=== PATIENT | male | born 1960 | race Hispanic/Latino ===

== ENCOUNTER 2017-09-01 00:46 | Inpatient (IN) | payer OTHER ==
[2017-09-01] MEDS ORDERED: ASPIRIN PO ONE (01:19)
--- NOTE | 2017-09-01 01:26 | Emergency Department Report ---
ED Chest Pain HPI - General Chief Complaint: Chest Pain Stated Complaint: CHEST PAIN Time Seen by Provider: 09/01/17 01:17 Source: patient, EMS Mode of arrival: Ambulatory Limitations: No Limitations - History of Present Illness Initial Comments: Patient is a 56-year-old male who is presenting with chest pain. Patient has a history of coronary disease. Patient has a history of 2 MIs with 2 stents placed in the past. Last night was placed approximately one year ago. Patient states he was at home. He walked outside to have a cigarette butt time he walked back in he was having chest discomfort. Patient describes the pain is uncomfortable heaviness with radiation to the arms. There is associated shortness of breath and clamminess. Patient denies any nausea vomiting. Patient also denies any pleuritic chest pain at this time. Patient states he has not had a cough cold congestion sinus issues in the past several days to weeks. Currently patient states that he is chest pain as a 3 out of 10 in severity. Treatments Prior to Arrival: none, aspirin Aspirin use within the Past 7 Days: (1) Yes - Related Data Allergies Allergy/AdvReac Type Severity Reaction Status Date / Time No Known Allergies Allergy Unverified 09/01/17 01:13 Heart Score - HEART Score History: Highly suspicious EKG: Normal Age: 45-65 Risk factors: > 3 risk factors or hx of atherosclerotic disease Troponin: < normal limit HEART Score: 5 - Critical Actions Critical Actions: 4-6 pts:12-16.6% risk of adverse cardiac event. Should be admitted ED Review of Systems ROS: Stated complaint: CHEST PAIN Other details as noted in HPI Comment: All other systems reviewed and negative ED Past Medical Hx - Past Medical History Previous Medical History?: Yes Hx Hypertension: Yes Hx Heart Attack/AMI: Yes Additional medical history: ANXIETY - Surgical History Past Surgical History?: No - Social History Smoking Status: Unknown if ever smoked Substance Use Type: None ED Physical Exam - General Limitations: No Limitations General appearance: alert, in no apparent distress - Head Head exam: Present: atraumatic, normocephalic - Eye Eye exam: Present: normal appearance - ENT ENT exam: Present: mucous membranes moist - Neck Neck exam: Present: normal inspection - Respiratory Respiratory exam: Present: normal lung sounds bilaterally. Absent: respiratory distress - Cardiovascular Cardiovascular Exam: Present: regular rate, normal rhythm. Absent: systolic murmur, diastolic murmur, rubs, gallop - GI/Abdominal GI/Abdominal exam: Present: soft, normal bowel sounds - Rectal Rectal exam: Present: deferred - Extremities Exam Extremities exam: Present: normal inspection - Back Exam Back exam: Present: normal inspection - Neurological Exam Neurological exam: Present: alert, oriented X3 - Psychiatric Psychiatric exam: Present: normal affect, normal mood - Skin Skin exam: Present: warm, dry, intact, normal color. Absent: rash ED Course Vital Signs 09/01/17 09/01/17 09/01/17 03:08 04:33 04:40 Pulse Rate 67 74 Respiratory 18 18 18 Rate Blood Pressure 121/80 150/101 [Left] O2 Sat by Pulse 96 96 Oximetry LEXY score - Lexy Score Age > 65: (0) No Aspirin use within the Past 7 Days: (1) Yes 3 or more CAD Risk Factors: (1) Yes 2 or more Angina events in past 24 hrs: (0) No Known CAD with more than 50% Stenosis: (1) Yes Elevated Cardiac Markers: (0) No ST Deviation Greater than 0.5mm: (0) No LEXY Score: 3 ED Medical Decision Making - Lab Data Result diagrams: 09/01/17 01:59 09/01/17 01:59 - EKG Data Interpretation: no acute changes, other (EKGs shows sinus rhythm rate of 74 axis is leftward intervals there's a prolonged ND interval LVH is present. Inferior Q waves as well as anterior septal Q waves there are no ST segment elevations or depressions time of interpretation is 0104) - Radiology Data Radiology results: image reviewed interpreted by me: No acute process - Medical Decision Making is a 56-year-old male with past medical history of coronary disease was presenting with chest pain. Patient's pain is controlled at this time after receiving aspirin. Patient will be admitted to Dr. Hayes for cardiac rule out because of his high risk. Patient be admitted to the hospital. Critical care time in (mins) excluding proc time.: 30 Critical care attestation.: If time is entered above; I have spent that time in minutes in the direct care of this critically ill patient, excluding procedure time. ED Disposition Clinical Impression: Unstable angina Disposition: OP ADMIT IP TO THIS HOSP Is pt being admited?: Yes Does the pt Need Aspirin: No Condition: Stable Instructions: Angina (ED) Referrals: MOOKIE PICHARDO MD [Primary Care Provider] - 3-5 Days
[2017-09-01 02:11] LABS: Basophils # (Auto) 0.1 K/mm3 (0.0-0.1); Basophils % (Auto) 0.6 % (0.0-1.8); Eosinophils # (Auto) 0.2 K/mm3 (0.0-0.4); Eosinophils % (Auto) 2.1 % (0.0-4.3); Hematocrit 43.6 % (35.5-45.6); Hemoglobin 14.8 gm/dl (11.8-15.2); Lymphocytes # (Auto) 1.8 K/mm3 (1.2-5.4); Lymphocytes % (Auto) 16.9 % (13.4-35.0); Mean Corpuscular HGB Conc 34 % (32-34); Mean Corpuscular Hemoglobin 32 pg (28-32); Mean Corpuscular Volume 94 fl (84-94); Monocytes # (Auto) 0.6 K/mm3 (0.0-0.8); Monocytes % (Auto) 5.4 % (0.0-7.3); Platelet Count 217 K/mm3 (140-440); Red Blood Count 4.62 M/mm3 (3.65-5.03); Red Cell Distribution Width 14.2 % (13.2-15.2)
[2017-09-01 02:27] LABS: BUN/Creatinine Ratio 14; Blood Urea Nitrogen 14 mg/dL (9-20); Calcium 9.2 mg/dL (8.4-10.2); Hemolysis Index 21
--- NOTE | 2017-09-01 04:35 | XRay Report ---
FINAL REPORT PROCEDURE: XR CHEST ROUTINE 2V TECHNIQUE: PA and lateral chest radiographs were obtained. CPT 20775 HISTORY: cough COMPARISON: No prior studies are available for comparison. FINDINGS: Heart: Normal. Mediastinum/Vessels: Normal. Lungs/Pleural space: Normal. Bony thorax: No acute osseous abnormality. Other: IMPRESSION: There is no evidence of an acute cardiopulmonary process.
[2017-09-01] MEDS ORDERED: MILK OF MAGNESIA PO PRN (06:28)
[2017-09-01] MEDS ORDERED: MORPHINE IV PRN (06:28)
[2017-09-01] MEDS ORDERED: DULCOLAX PR PRN (06:28)
[2017-09-01] MEDS ORDERED: TYLENOL PO PRN (06:28)
[2017-09-01] MEDS ORDERED: ZOFRAN IV PRN (06:28)
--- NOTE | 2017-09-01 06:35 | History and Physical Report ---
History of Present Illness Date of examination: 09/01/17 History of present illness: 56-year-old man with a history of coronary artery disease, hypertension, anxiety comes emergency room with complaints of chest pain. Pain is in the left substernal area which she described as crushing pain, intensity 7/10, constant, radiating to the right arm. States that the right arm is numb, cannot identify exacerbating or relieving factors. Last stent was placed in May of last year, he did a stress test a week ago as a routine physical, state that his EF is 31%, Cymbalta, shortness of breath, no diaphoresis, palpitation. Patient has been stretching out his medication, he was not taking it for one week Review Of Systems: Constitutional: no weight loss Ears, eyes, nose, mouth and throat: no nasal congestion, no nasal discharge, no sinus pressure, blurry vision, diplopia Neck: No neck pain or rigidity. Cardiovascular: No palpitations Respiratory: No cough Gastrointestinal: No abdominal pain, hematochezia Genitourinary : no dysuria, frequency , hematuria Musculoskeletal: no muscle ache Integumentary: no rash, no pruritis Neurological: no parathesias, focal weakness Endocrine: no cold or heat intolerance, no polyuria or polydipsia Hematologic/Lymphatic: no easy bruising, no easy bleeding, no gland swelling Allergic/Immunologic: no urticaria, no angioedema. PAST MEDICAL HISTORY:coronary artery disease, hypertension, anxiety PAST SURGICAL HISTORY: None FAMILY HISTORY: Hypertension SOCIAL HISTORY: Smokes about a day, no alcohol and drugs Medications and Allergies Allergies Allergy/AdvReac Type Severity Reaction Status Date / Time No Known Allergies Allergy Verified 09/01/17 06:32 Home Medications Medication Instructions Recorded Confirmed Last Taken Type AtorvaSTATin [Lipitor] 40 PO DAILY 09/01/17 1 Day Ago History ~08/31/17 Carvedilol [Coreg] 6.25 mg PO BID 09/01/17 09/01/17 1 Day Ago History ~08/31/17 Citalopram [Celexa] 20 DAILY 09/01/17 Unknown History Lisinopril [Zestril] 10 mg PO DAILY 09/01/17 09/01/17 1 Day Ago History ~08/31/17 Ticagrelor [Brilinta] 90 mg PO BID 09/01/17 09/01/17 1 Day Ago History ~08/31/17 Exam - Physical Exam Narrative exam: Gen. appearance: Patient lying in bed in no acute distress HEENT: Normocephalic/atraumatic, pupils equal round reactive to light, extra occular movement intact, no scleral icterus, no JVD or thyromegaly or nodule, neck is supple, mucous membrane moist, no erythema or exudate Heart: S1-S2, regular rate and rhythm Lungs: Clear to auscultation bilateral breathing comfortable Abdomen: Positive bowel sounds, nontender, nondistended, no organomegaly Extremities: No edema, cyanosis, clubbing Neuro:: Oriented 3 , cranial nerves II-12 intact, speech, motor intact Skin: No rash, nodules, warm dry - Constitutional Vitals: Temp Pulse Resp BP Pulse Ox 98 F 69 18 147/73 99 09/01/17 05:54 09/01/17 05:54 09/01/17 05:54 09/01/17 05:54 09/01/17 05:54 Results - Labs CBC & Chem 7: 09/01/17 01:59 09/01/17 01:59 Labs: Abnormal lab results 09/01/17 09/01/17 Range/Units 01:59 01:59 Seg Neutrophils % 75.0 H (40.0-70.0) % Seg Neutrophils # 8.0 H (1.8-7.7) K/mm3 Glucose 134 H (75-100) mg/dL - Imaging and Cardiology EKG: image reviewed Chest x-ray: image reviewed Assessment and Plan Assessment Unstable angina Coronary artery disease Hypertension Anxiety Plan Admit to medicine Check cardiac enzymes, consult cardiology Restart home medications DVT prophylaxis
[2017-09-01] MEDS ORDERED: APRESOLINE IV PRN (08:51)
[2017-09-01 08:54] LABS: Creatine Kinase MB 144.4 ng/mL (0.0-4.0)
[2017-09-01] MEDS ORDERED: LOVENOX SUB-Q SCH ×2 (10:00)
[2017-09-01] MEDS ORDERED: HEPARIN/ 0.45% NACL-25,000 UNIT/500 ML 25,000 UNIT/500 ML BAG IV SCH (13:00)
--- NOTE | 2017-09-01 13:02 | Event Note ---
Date: 09/01/17 Patient seen and examined Patient had a full history and physical this morning Cardiology consult was placed It's still pending I will start the patient on intravenous heparin drip as the patient has NSTEMI He quit taking patient ticagrelor several weeks ago after having a PCI for [place]
[2017-09-01 13:48] LABS: Hematocrit 44.5 % (35.5-45.6); Hemoglobin 14.9 gm/dl (11.8-15.2)
[2017-09-01 14:05] LABS: INR 0.94 (0.87-1.13)
[2017-09-01 14:06] LABS: Partial Thromboplastin Time 34.2 Sec. (24.2-36.6)
[2017-09-01 14:09] LABS: Creatine Kinase MB 124.4 ng/mL (0.0-4.0)
[2017-09-01] MEDS ORDERED: NITRO-BID 2% TP PRN (15:44)
[2017-09-01] MEDS: COREG PO SCH (20:59)
[2017-09-01] MEDS: BRILINTA PO SCH (20:59)
[2017-09-02 06:13] LABS: Basophils # (Auto) 0.1 K/mm3 (0.0-0.1); Basophils % (Auto) 0.7 % (0.0-1.8); Eosinophils # (Auto) 0.3 K/mm3 (0.0-0.4); Eosinophils % (Auto) 3.5 % (0.0-4.3); Lymphocytes # (Auto) 3.2 K/mm3 (1.2-5.4); Lymphocytes % (Auto) 37.6 % (13.4-35.0); Mean Corpuscular HGB Conc 33 % (32-34); Mean Corpuscular Hemoglobin 31 pg (28-32); Mean Corpuscular Volume 94 fl (84-94); Monocytes # (Auto) 0.8 K/mm3 (0.0-0.8); Monocytes % (Auto) 9.1 % (0.0-7.3); Platelet Count 203 K/mm3 (140-440); Red Blood Count 4.47 M/mm3 (3.65-5.03); Red Cell Distribution Width 14.4 % (13.2-15.2)
[2017-09-02 06:29] LABS: BUN/Creatinine Ratio 16; Blood Urea Nitrogen 14 mg/dL (9-20); Calcium 9.1 mg/dL (8.4-10.2); Hemolysis Index 9
[2017-09-02] MEDS ORDERED: ASPIRIN PO SCH (10:00)
[2017-09-02] MEDS: COREG PO SCH ×2 (10:32→22:34)
[2017-09-02] MEDS: BRILINTA PO SCH (10:32)
[2017-09-02] MEDS: ZESTRIL PO SCH (10:33)
[2017-09-02] MEDS ORDERED: HEPARIN/NS 5000 UNIT/500ML(CATH LAB) 1,000 ML IR ONE (13:45)
[2017-09-02] MEDS ORDERED: XYLOCAINE 2% INFILTRATI ONE (13:51)
[2017-09-02] MEDS ORDERED: NACL 0.9% 1000 ML 1,000 ML ONE (14:04)
[2017-09-02] MEDS: VERSED ONE ×2 (14:10→14:23)
--- NOTE | 2017-09-02 14:45 | Progress Note ---
Assessment and Plan NSTEMI - Likely due to re-blocking of the recent stent - Immediate cardiac cath shows patent stents mid LAD and prox-mid RCA. - Findings suggest transient thrombotic occlusion with spontaneous resolution on anticoagulation therapy. - There is a severe cardiomyopathy-EF 15-20%. - He'll be continue on Plavix, heparin drip will be stopped per cardiology recommendation Coronary artery disease - Continue current management, no further intervention per cardiology Hypertension - Adjustment as needed Anxiety - No acute issues now - Continue home regimen of Cymbalta Brief history: 56-year-old man with a history of coronary artery disease, hypertension, anxiety comes emergency room with complaints of chest pain. Last stent was placed in May of last year, he did a stress test a week ago as a routine physical, state that his EF is 31%. He noted to have elevated troponin and placed on heparin drip. He was admitted for further evaluation and management. Radiological test: CXR - no acute cardiopulmonary event Hospitalist Physical exam: GENERAL: well-developed and well-nourished white male lying on bed appeared to be in no discomfort. HEENT: Normocephalic. Atraumatic. No conjunctival congestion or icterus. Patient has moist mucous membranes. NECK: Supple. Trachea midline. CHEST/LUNGS: Clear to auscultated bilaterally, breathing nonlabored. No wheezes crackles or rhonchi. HEART/CARDIOVASCULAR: Regular in rate and rhythm. S1 and S2 positive. ABDOMEN: Abdomen is soft, nontender. Patient has normal bowel sounds. SKIN: There is no rash. Warm and dry. NEURO: No focal motor deficit. Follows command. MUSCULOSKELETAL: No joint effusion or tenderness. EXTRIMITY: No edema, no cyanosis or clubbing. PSYCH: Cooperative. Subjective Date of service: 09/02/17 Interval history: Patient seen and examined. Medical records and medication list reviewed. No acute event overnight noted by the RN. Patient is getting out of the floor no for cardiac cath States that chest pain much better now He also couldn't afford this medication because his insurance didn't cover the jackson He wants medications to switch back that is marked affordable Discussed plan of care at bedside with patient. Objective - Constitutional Vitals: Vital Signs - 12hr 09/02/17 09/02/17 04:22 08:03 Temperature 98.6 F Pulse Rate 69 61 Respiratory 18 Rate Blood Pressure 125/76 123/81 O2 Sat by Pulse 94 98 Oximetry - Labs CBC & Chem 7: 09/03/17 Unknown 09/02/17 05:05 Labs: Abnormal lab results 09/01/17 09/01/17 09/02/17 Range/Units 13:10 21:34 05:05 Lymph % (Auto) 37.6 H (13.4-35.0) % [place] % (Auto) 9.1 H (0.0-7.3) % Heparin Anti-Xa Level 0.23 L (0.3-0.7) U.I./ml Troponin T 1.980 H* D (0.00-0.029) ng/mL 09/02/17 Range/Units 05:11 Lymph % (Auto) (13.4-35.0) % [place] % (Auto) (0.0-7.3) % Heparin Anti-Xa Level 0.10 L (0.3-0.7) U.I./ml Troponin T (0.00-0.029) ng/mL
--- NOTE | 2017-09-02 14:49 | Consultation ---
History of Present Illness Consult date: 09/02/17 Consult reason: abnormal cardiac enzymes, chest pain History of present illness: 56y M with history of CAD and cor stent in [place] 05/2017. Has been noncompliant with his Brilinta due to loss of his job. Presents with chest pain and elevated cardiac enzymes-high suspicion for subacute stent thrombosis. Immediate cardiac cath shows patent stents mid LAD and prox-mid RCA. Findings suggest transient thrombotic occlusion with spontaneous resolution on anticoagulation therapy. There is a severe cardiomyopathy-EF 15-20%. We will treat medically, and switch to more affordable antiplatelet with Plavix. Past History Past Medical History: CAD Past Surgical History: PTCA Medications and Allergies Allergies Allergy/AdvReac Type Severity Reaction Status Date / Time No Known Allergies Allergy Verified 09/01/17 06:32 Home Medications Medication Instructions Recorded Confirmed Last Taken Type AtorvaSTATin [Lipitor] 40 mg PO DAILY 09/01/17 09/01/17 1 Day Ago History ~08/31/17 Carvedilol [Coreg] 6.25 mg PO BID 09/01/17 09/01/17 1 Day Ago History ~08/31/17 Citalopram [Celexa] 20 mg DAILY 09/01/17 09/02/17 Unknown History Lisinopril [Zestril] 10 mg PO DAILY 09/01/17 09/01/17 1 Day Ago History ~08/31/17 Ticagrelor [Brilinta] 90 mg PO BID 09/01/17 09/01/17 1 Day Ago History ~08/31/17 Active Meds: Active Medications Acetaminophen (Tylenol) 650 mg PO Q4H PRN PRN Reason: Pain MILD(1-3)/Fever >100.5/[place] Aspirin (Halfprin Ec) 81 mg PO QDAY [facility] [place] Atorvastatin Calcium (Lipitor) 40 mg PO QHS [facility] Last Admin: 09/01/17 20:59 Dose: 40 mg Bisacodyl (Dulcolax) 10 mg [place] QDAY PRN PRN Reason: Constipation unrelieved by MOM Carvedilol (Coreg) 6.25 mg PO BID [facility] [place] Last Admin: 09/02/17 10:32 Dose: 6.25 mg Clopidogrel Bisulfate (Plavix) 75 mg PO QDAY [facility] [place] [place] Furosemide (Lasix) 40 mg PO QDAY [facility] Heparin Sodium (Porcine) (Heparin 10,000 Units/10 Ml) 3,000 unit IV ONCE ONE Stop: 09/02/17 18:31 Hydralazine HCl (Apresoline) 10 mg IV Q4HR PRN PRN Reason: SBP >170 Last Admin: 09/01/17 09:24 Dose: 10 mg Sodium Chloride (Nacl 0.9% 1000 Ml) 1,000 mls @ 75 mls/hr IV DIRECT [place] Stop: 09/02/17 20:59 Heparin Sodium/Sodium Chloride (Heparin/ 0.45% Nacl-25,000 Unit/500 Ml) 25,000 unit in 500 mls @ 20.56 mls/hr IV TITRATE [place]; 10 UNITS/KG/HR PRN Reason: Protocol Stop: 09/05/17 18:29 Isosorbide Mononitrate (Imdur) 30 mg PO QDAY [place] Lisinopril (Zestril) 10 mg PO DAILY [place] Last Admin: 09/02/17 10:33 Dose: 10 mg Magnesium Hydroxide (Milk Of Magnesia) 30 ml PO Q4H PRN PRN Reason: Constipation Morphine Sulfate (Morphine) 2 mg IV Q4H PRN PRN Reason: Pain, Moderate (4-6) Nitroglycerin (Nitro-Bid 2%) 1 inch TP Q6HR PRN; Protocol PRN Reason: Chest Pain Ondansetron HCl (Zofran) 4 mg IV Q8H PRN PRN Reason: N/V unrelieved by Reglan Potassium Chloride (K-Dur) 20 meq PO QDAY [facility] Review of Systems Cardiovascular: chest pain, shortness of breath, no orthopnea, no palpitations, no rapid/irregular heart beat, no edema, no syncope, no lightheadedness Physical Examination Vital Signs Pulse Resp BP Pulse Ox 67 18 121/80 96 09/01/17 03:08 09/01/17 03:08 09/01/17 03:08 09/01/17 03:08 General appearance: no acute distress HEENT: Positive: PERRL Neck: Positive: neck supple Cardiac: Positive: Reg Rate and Rhythm Lungs: Positive: Decreased Breath Sounds Neuro: Positive: Grossly Intact Abdomen: Positive: Soft Male genitourinary: Positive: deferred Skin: Positive: Clear Extremities: Absent: edema Results 09/02/17 05:05 09/02/17 05:05 CBC 09/02/17 Range/Units 05:05 WBC 8.5 (4.5-11.0) K/mm3 RBC 4.47 (3.65-5.03) M/mm3 Hgb 14.0 (11.8-15.2) gm/dl Hct 42.0 (35.5-45.6) % Plt Count 203 (140-440) K/mm3 Lymph # 3.2 (1.2-5.4) K/mm3 [place] # 0.8 (0.0-0.8) K/mm3 Eos # 0.3 (0.0-0.4) K/mm3 Baso # 0.1 (0.0-0.1) K/mm3 Comprehensive Metabolic Panel 09/02/17 Range/Units 05:05 Sodium 143 (137-145) mmol/L Potassium 3.6 (3.6-5.0) mmol/L Chloride 104.4 (98-107) mmol/L Carbon Dioxide 22 (22-30) mmol/L BUN 14 (9-20) mg/dL Creatinine 0.9 (0.8-1.5) mg/dL Glucose 84 (75-100) mg/dL Calcium 9.1 (8.4-10.2) mg/dL EKG interpretations - Telemetry EKG Rhythm: Sinus Rhythm (with old inferior MO and nonspecific anterior ST depression) Assessment and Plan Admitted with NSTEMI. Immediate cardiac cath shows patent stents mid LAD and prox-mid RCA. Findings suggest transient thrombotic occlusion with spontaneous resolution on anticoagulation therapy. There is a severe cardiomyopathy-EF 15-20%. We will treat medically, and switch to more affordable antiplatelet with Plavix.
[2017-09-02] MEDS ORDERED: PLAVIX ONE (14:56)
[2017-09-02] MEDS ORDERED: ALUM-MAG HYDROX-SIMETH 200-200-20MG/5ML ONE (14:56)
[2017-09-02] MEDS ORDERED: NACL 0.9% 1000 ML 1,000 ML IV SCH (15:00)
[2017-09-02] MEDS: IMDUR PO SCH (16:28)
[2017-09-02] MEDS: K-DUR PO SCH (16:29)
[2017-09-02] MEDS: LASIX PO SCH (17:29)
[2017-09-02] MEDS ORDERED: HEPARIN 10,000 UNITS/10 ML IV ONE (18:30)
--- NOTE | 2017-09-02 20:44 | Cardiac Catherization Report ---
CARDIAC CATHETERIZATION REASON FOR PROCEDURE: The patient is a 56-year-old man with a history of coronary artery disease, previous multivessel coronary stenting. His most recent coronary stent was 4 months ago in [place]. He admits to being noncompliant with his Brilinta antiplatelet therapy for over a month, since he lost his job and his medical insurance. He was admitted to the hospital at this time with chest pain, which he states was reminiscent of his prior angina. He was admitted by the medical service. Ultimately, today a cardiology consultation was requested. After review of his symptoms, his ECGs and marked elevation in his cardiac enzyme profile, we recommended immediate cardiac catheterization to evaluate a likely clinical scenario of late stent thrombosis following noncompliance with oral antiplatelet therapy. DESCRIPTION OF PROCEDURE: The patient was prepped and draped in a sterile fashion after informed consent. Right femoral artery was entered using the Seldinger technique followed by deployment of a 6-[place] sheath. We then performed selective left and right coronary angiography using a #4 Anita catheters. The pigtail catheter was used for left ventricle angiography. The catheters were then removed, sheath removed, and hemostasis achieved using manual compression. The patient was returned to the postprocedure unit in stable condition. There were no complications. FINDINGS: HEMODYNAMICS: Left ventricular end diastolic pressure was 25-30, following coronary angiography. Ascending aortic pressure was 144/89. There was no significant pressure gradient on pullback across the aortic valve. CORONARY ANGIOGRAPHY: The left main coronary artery was free of significant disease. The left anterior descending artery contained moderate diffuse ectasia of its proximal segment, associated with mild to moderate atherosclerotic disease in that segment. Most notably in the LAD, a stent was visible in the mid to distal vessel. The stent appeared widely patent with no in-stent restenosis or in-stent filling defects. However, a medium sized diagonal branch, which originated from the stented segment contained mild ostial narrowing associated with some mild haziness or possible filling defect at its ostium. The circumflex artery was a large caliber, moderately to severely ectatic vessel. There was a 50% stenosis of the mid AV groove circumflex, otherwise mild luminal irregularities in the rest of the circumflex system. The right coronary artery was dominant. This vessel was also moderately to severely ectatic in its proximal, mid and distal AV groove segments. A stent was visible in the proximal to mid vessel, extending from the ostium. The stented segment was patent, with mild in-stent restenosis. No significant filling defects or evidence of subacute or acute thrombosis was noted within the stented segment or the rest of the right coronary system. The left ventricle was severely dilated. There was severe left ventricular systolic dysfunction, diffuse hypokinesis. Left ventricular ejection fraction estimated at 15-20%. CONCLUSION: 1. Multivessel coronary artery disease as above. 2. Patent mid distal LAD stent. 3. Patent proximal and mid right coronary artery stent. 4. Otherwise, diffuse mild to moderate nonobstructive residual disease. 5. Severe dilated cardiomyopathy, left ventricular ejection fraction 15-20%. Severity of the cardiomyopathy may be disproportionate to the degree of coronary artery disease evident. RECOMMENDATIONS: 1. Aggressive risk factor modification and medical therapy, including resumption of dual oral antiplatelet therapy. 2. Possible scenario is transient thrombosis of either LAD or right coronary artery stent following noncompliance with oral antiplatelet therapy. Thrombotic lesion may have resolved on medical therapy antecedent to the diagnostic coronary artery procedure. The patient was on intravenous heparin and his Brilinta has been resumed prior to the catheterization procedure. JOB# [id number] SONALI/JACQUES
[2017-09-02] MEDS: HEPARIN/ 0.45% NACL-25,000 UNIT/500 ML 25,000 UNIT/500 ML BAG IV SCH (22:33)
[2017-09-03 05:50] LABS: Hematocrit 39.1 % (35.5-45.6); Hemoglobin 13.2 gm/dl (11.8-15.2)
[2017-09-03] MEDS: K-DUR PO SCH (10:27)
[2017-09-03] MEDS: PLAVIX PO SCH (10:27)
[2017-09-03] MEDS: HALFPRIN EC PO SCH (10:27)
[2017-09-03] MEDS: LASIX PO SCH (10:29)
[2017-09-03 12:52] LABS: BUN/Creatinine Ratio 20; Blood Urea Nitrogen 18 mg/dL (9-20); Calcium 9.4 mg/dL (8.4-10.2); Hemolysis Index 6
--- NOTE | 2017-09-03 12:55 | Discharge Summary ---
Providers - Providers Date of Admission: 09/01/17 06:28 Date of discharge: 09/03/17 Attending physician: CYNTHIA THOMAS 09/01/17 06:28 Consult to Physician [CONS] Routine Consulting Provider: SHY ELLIS Reason For Exam: ua Place consult to:: [facility] Notified:: a service Phone number called:: [phone] Was contact made?: No Time called:: 10:15 Comment:: put on list a service not answering made 3 attempts 09/02/17 07:04 Consult to Cardiac Rehabilitation [CONS] Urgent Reason For Exam: NSTEMI 09/02/17 14:38 Consult to Cardiac Rehabilitation [CONS] Routine Reason For Exam: Cardiac Rehab Evaluation Primary care physician: MOOKIE PICHARDO Hospitalization Condition: Stable Hospital course: Brief history: 56-year-old man with a history of coronary artery disease, hypertension, anxiety comes emergency room with complaints of chest pain. Last stent was placed in May of last year, he did a stress test a week ago as a routine physical, state that his EF is 31%. He noted to have elevated troponin and placed on heparin drip. He was admitted for further evaluation and management. Discharge diagnosis and management: NSTEMI - Likely due to re-blocking of the recent stent - Immediate cardiac cath shows patent stents mid LAD and prox-mid RCA. - Findings suggest transient thrombotic occlusion with spontaneous resolution on anticoagulation therapy. - There is a severe cardiomyopathy-EF 15-20%. - He'll be continue on Plavix, heparin drip will be stopped per cardiology recommendation Ischemia cardiomyopathy - cont asp, plavix, BB, ACEI and lasix Coronary artery disease - Continue current management, no further intervention per cardiology Hypertension - Adjustment as needed Anxiety - No acute issues now - Continue home regimen of Cymbalta Radiological test: CXR - no acute cardiopulmonary event Hospitalist Physical exam: GENERAL: well-developed and well-nourished white male lying on bed appeared to be in no discomfort. HEENT: Normocephalic. Atraumatic. No conjunctival congestion or icterus. Patient has moist mucous membranes. NECK: Supple. Trachea midline. CHEST/LUNGS: Clear to auscultated bilaterally, breathing nonlabored. No wheezes crackles or rhonchi. HEART/CARDIOVASCULAR: Regular in rate and rhythm. S1 and S2 positive. ABDOMEN: Abdomen is soft, nontender. Patient has normal bowel sounds. SKIN: There is no rash. Warm and dry. NEURO: No focal motor deficit. Follows command. MUSCULOSKELETAL: No joint effusion or tenderness. EXTRIMITY: No edema, no cyanosis or clubbing. PSYCH: Cooperative. Disposition: DC-01 TO HOME OR SELFCARE Time spent for discharge: 32 minutes Core Measure Documentation - Palliative Care Palliative Care/ Comfort Measures: Not Applicable - Core Measures Any of the following diagnoses?: acute TN, heart failure - Acute TN Discharge Requirements Aspirin at discharge: Yes KESHAV/ARB for LVSD if EF <40%: Yes Beta marlene at discharge: Yes Statin for LDL = or >100 mg/dl on DC: Yes - Heart Failure Discharge Requirements KESHAV/ARB for LVSD if EF <40%: Yes Beta marlene at discharge: Yes Exam - Constitutional Vitals: Temp Pulse Resp BP Pulse Ox 98.3 F 66 18 99/63 95 09/03/17 08:15 09/03/17 10:00 09/03/17 10:00 09/03/17 08:15 09/03/17 10:00 Plan Activity: advance as tolerated Weight Bearing Status: Non-Weight Bearing Diet: low cholesterol, low salt Follow up with: MOOKIE PICHARDO MD [Primary Care Provider] - 3-5 Days SHY ELLIS MD [Staff Physician] - 7 Days Prescriptions: AtorvaSTATin [Lipitor] 40 mg PO QHS #30 tablet Aspirin EC [Aspirin Enteric Coated TAB] 81 mg PO QDAY #30 tablet Carvedilol [Coreg] 6.25 mg PO BID #60 tablet Clopidogrel [Plavix] 75 mg PO QDAY #30 tablet Furosemide [Lasix TAB] 40 mg PO QDAY #30 tablet ISOSORBIDE MONOnitrate [Imdur ER] 30 mg PO QDAY #30 tablet
--- NOTE | 2017-09-03 14:16 | Progress Note ---
Assessment and Plan NSTEMI C shows patent stents mid LAD and prox-mid RCA. Findings suggest transient thrombotic occlusion with spontaneous resolution on anticoagulation therapy. EF 15-20%. Severe cardiomyopathy Hx of CAD s/p PCI in [place] 05/2017. pt has been noncompliant with his [employer] due to loss of his job. Recommendations: Medical therapy for CAD to include plavix and aspirin. Medical therapy for severe cardiomyopathy. Fluid/sodium restriction. Stable, cardiac [place], for discharge home. Subjective Date of service: 09/03/17 Interval history: Patient has no complaints. He denies chest pain and shortness of breath. Objective Vital Signs Temp Pulse Pulse Pulse Resp BP BP 09/03/17 13:11 97.6 F 65 18 112/68 09/03/17 10:00 66 66 18 09/03/17 08:16 60 09/03/17 08:15 98.3 F 61 18 99/63 09/03/17 04:21 98.6 F 65 20 100/62 09/02/17 23:44 98.6 F 66 22 108/51 09/02/17 23:00 84 22 09/02/17 22:00 09/02/17 19:15 123/78 09/02/17 19:00 129/80 09/02/17 18:46 129/76 09/02/17 18:30 133/82 09/02/17 18:23 22 124/88 09/02/17 18:15 124/88 09/02/17 18:00 117/79 09/02/17 17:45 128/89 09/02/17 17:30 118/81 09/02/17 17:15 134/76 09/02/17 17:02 09/02/17 17:00 119/79 09/02/17 16:45 115/79 09/02/17 16:31 131/88 09/02/17 16:24 129/83 09/02/17 16:23 129/83 09/02/17 15:30 63 123/78 09/02/17 15:11 126/79 Pulse Ox 09/03/17 13:11 99 09/03/17 10:00 95 09/03/17 08:16 94 09/03/17 08:15 94 09/03/17 04:21 94 09/02/17 23:44 95 09/02/17 23:00 96 09/02/17 22:00 96 09/02/17 19:15 09/02/17 19:00 09/02/17 18:46 09/02/17 18:30 09/02/17 18:23 09/02/17 18:15 09/02/17 18:00 09/02/17 17:45 09/02/17 17:30 09/02/17 17:15 09/02/17 17:02 97 09/02/17 17:00 09/02/17 16:45 09/02/17 16:31 09/02/17 16:24 09/02/17 16:23 09/02/17 15:30 09/02/17 15:11 - Physical Examination General: No Apparent Distress HEENT: Positive: PERRL Cardiac: Positive: Reg Rate and Rhythm Lungs: Positive: Decreased Breath Sounds Neuro: Positive: Grossly Intact Incision: Cardiac Cath Site (right groin) Extremities: Absent: edema - Labs and Meds CBC 09/03/17 Range/Units Unknown Hgb 13.2 (11.8-15.2) gm/dl Hct 39.1 (35.5-45.6) % Plt Count 188 (140-440) K/mm3 Comprehensive Metabolic Panel 09/03/17 Range/Units 12:27 Sodium 137 (137-145) mmol/L Potassium 3.9 (3.6-5.0) mmol/L Chloride 99.9 (98-107) mmol/L Carbon Dioxide 25 (22-30) mmol/L BUN 18 (9-20) mg/dL Creatinine 0.9 (0.8-1.5) mg/dL Glucose 96 (75-100) mg/dL Calcium 9.4 (8.4-10.2) mg/dL - Imaging and Cardiology EKG: image reviewed
[2017-09-03] MEDS: celeXA PO SCH (18:08)
[2017-09-03] MEDS: COREG PO SCH ×2 (18:09→22:16)
[2017-09-03] MEDS: IMDUR PO SCH (18:10)
[2017-09-04] MEDS: HEPARIN/ 0.45% NACL-25,000 UNIT/500 ML 25,000 UNIT/500 ML BAG IV SCH (01:00)
[2017-09-04 04:01] LABS: Hemoglobin 13.1 gm/dl (11.8-15.2)
[2017-09-04] MEDS: PLAVIX PO SCH (09:51)
[2017-09-04] MEDS: COREG PO SCH (09:51)
[2017-09-04] MEDS: HALFPRIN EC PO SCH (09:51)
[2017-09-04] MEDS: ZESTRIL PO SCH (09:52)
[2017-09-04] MEDS: celeXA PO SCH (09:52)
[2017-09-04] MEDS: LASIX PO SCH (09:52)
[2017-09-04] MEDS: K-DUR PO SCH (09:56)
[2017-09-04] MEDS: IMDUR PO SCH (09:56)
[2017-09-04 09:57] VITALS: BP 127/75
== END 2017-09-04 10:05 | disposition home or self-care (01) | DRG 281 ==
LOC: ED 00:46 → 4A 06:28
PROVIDERS: ADMIT Internal Medicine; ATTEND Internal Medicine
PROC: 5A09357 Assistance with Respiratory Ventilation, Less than 24 Consecutive Hours, Continuous Positive Airway Pressure (ICD-10-PCS; 2017-09-01)
PROC: 5A09357 Assistance with Respiratory Ventilation, Less than 24 Consecutive Hours, Continuous Positive Airway Pressure (ICD-10-PCS; 2017-09-02)
PROC: 4A023N7 Measurement of Cardiac Sampling and Pressure, Left Heart, Percutaneous Approach (ICD-10-PCS; principal; 2017-09-03)
PROC: B2111ZZ Fluoroscopy of Multiple Coronary Arteries using Low Osmolar Contrast (ICD-10-PCS; 2017-09-03)
PROC: B2151ZZ Fluoroscopy of Left Heart using Low Osmolar Contrast (ICD-10-PCS; 2017-09-03)
PROC: 5A09357 Assistance with Respiratory Ventilation, Less than 24 Consecutive Hours, Continuous Positive Airway Pressure (ICD-10-PCS; 2017-09-03)
DX: I21.4 Non-ST elevation (NSTEMI) myocardial infarction (principal); I42.9 Cardiomyopathy, unspecified; I25.110 Atherosclerotic heart disease of native coronary artery with unstable angina pectoris; I10 Essential (primary) hypertension; F41.9 Anxiety disorder, unspecified; F17.200 Nicotine dependence, unspecified, uncomplicated; Z82.49 Family history of ischemic heart disease and other diseases of the circulatory system; Z91.19 Patient's noncompliance with other medical treatment and regimen; I25.2 Old myocardial infarction
CPT/HCPCS: 36415; 71046; 80048; 80061; 82550; 82553; 82962; 84484; 85014; 85018; 85025; 85049; 85347; 85520; 85610; 85730; 93005; 93010; 93458; 94660; 94760; 96374; 99406; A9270-GY; C1887; C1894; J0360; J1644; J1650; J2250; J7030; Q9967